=== PATIENT | male | born 1980 | race Caucasian/White ===

== ENCOUNTER 2021-06-02 16:53 | Outpatient (REF) | payer MEDICAID, SELFPAY ==
--- NOTE | ~2021-06-02 | XR_ITS ---
EXAMINATION: XR CHEST CLINICAL INFORMATION: Cough COMPARISON: Previous chest x-ray January 2020 TECHNIQUE: 2 views of the chest were obtained. FINDINGS: No significant abnormality is noted involving the heart, lungs, mediastinum, bony thorax or soft tissues. XR/XR chest 2V IMPRESSION: Unremarkable examination.
== END 2021-06-02 16:54 | disposition home or self-care (01) ==
LOC: HO.XRAY 16:53
PROVIDERS: PCP Internal Medicine; Visit Provider Internal Medicine
DX: R05.9 Cough, unspecified (principal)
CPT/HCPCS: 71046

== ENCOUNTER 2021-08-30 13:12 | Emergency (ER) | payer MEDICAID, SELFPAY ==
--- NOTE | 2021-08-30 | ECG_ITS ---
Test Reason : chest pain Blood Pressure : / mmHG Vent. Rate : 064 BPM Atrial Rate : 064 BPM P-R Int : 170 ms QRS Dur : 092 ms QT Int : 380 ms P-R-T Axes : 051 019 010 degrees QTc Int : 392 ms Normal sinus rhythm with sinus arrhythmia Normal ECG When compared with ECG of 30-AUG-2021 13:45, No significant change was found Referred By: Generic ED Physician Electronically Signed By:Santhosh Moreno
--- NOTE | 2021-08-30 | ECG_ITS ---
Test Reason : chest pain Blood Pressure : / mmHG Vent. Rate : 069 BPM Atrial Rate : 069 BPM P-R Int : 164 ms QRS Dur : 090 ms QT Int : 378 ms P-R-T Axes : 037 016 005 degrees QTc Int : 405 ms Normal sinus rhythm Normal ECG When compared with ECG of 08-FEB-2020 14:20, No significant change was found Referred By: Generic ED Physician Electronically Signed By:Santhosh Moreno
--- NOTE | ~2021-08-30 | CT_ITS ---
EXAMINATION: CT SOFT TISSUE NECK WITH CONTRAST CLINICAL INFORMATION: Tonsillar swelling. Rule out abscess. SOB. COMPARISON: None TECHNIQUE: Following the intravenous administration of 60 mL of Omnipaque 350 intravenous contrast, helical imaging was performed in the axial plane with generation of coronal and sagittal reformatted images. This CT examination was performed using dose optimization techniques as appropriate, variously including the following: *Automated exposure control *Adjustment of mA and/or kV according to patient size (this includes techniques or standardized protocols for targeted exams where dose is matched to indication/reason for exam; i.e. extremities or head) *Use of iterative reconstruction technique DLP: 562 mGy-cm FINDINGS: No cervical adenopathy is identified. The parotid glands are homogeneous in attenuation. The submandibular glands are normal. No contour abnormality or pathologic enhancement is seen within the oral cavity or pharyngeal mucosal space. The laryngeal structures are normal. The parapharyngeal fat is preserved. The carotid sheath vasculature opacify normally. No extra mucosal soft tissue mass or fluid collection is seen. No retropharyngeal fluid collection is seen. The thyroid gland is normal. The superior mediastinum is unremarkable. The lung apices are clear. The mastoid air cells and visualized portions of the paranasal sinuses are well-aerated. The temporomandibular joints are normal. No periapical disease is identified. Mild degenerative disc changes with ventral spondylosis C5-C6 disc level.. The imaged portions of the brain parenchyma are unremarkable. CT/CT soft tissue neck w con IMPRESSION: Unremarkable CT soft tissue neck examination.
--- NOTE | ~2021-08-30 | XR_ITS ---
EXAMINATION: XR CHEST CLINICAL INFORMATION: Chest pain COMPARISON: None TECHNIQUE: 2 views of the chest were obtained. FINDINGS: No significant abnormality is noted involving the heart, lungs, mediastinum, bony thorax or soft tissues. XR/XR chest 2V IMPRESSION: Unremarkable chest examination.
[2021-08-30 14:01] LABS: MANUAL DIFF FLAG NO
[2021-08-30 14:03] LABS: Basophils Absolute Auto 0.1 X10*3/uL (0.0-0.2); Eosinophils Absolute Auto 0.4 X10*3/uL (0.0-0.4); Eosinophils Percent Auto 3.9 % (0-4); Hematocrit 45.6 % (42.0-52.0); Hemoglobin 15.7 g/dl (14.0-18.0); Imm Gran Abs Auto 0.05 X10*3/uL (0.00-0.03); Imm Gran Pct Auto 0.5 % (0.0-0.4); Lymphocytes Absolute Auto 2.5 X10*3/uL (1.2-4.9); Mean Corpuscular HGB Conc 34.4 g/dl (31.0-36.0); Mean Corpuscular Hemoglobin 31.8 pg (27.0-33.0); Mean Corpuscular Volume 92.3 fL (80.0-98.0); Mean Platelet Volume 10.1 fL (9.4-12.4); Monocytes Absolute Auto 0.8 X10*3/uL (0.1-1.2); Monocytes Percent Auto 8.2 % (2-11); Neutrophils Absolute Auto 5.4 x10*3/uL (2.0-8.3); Neutrophils Percent Auto 59.4 % (45-73); Platelet Count 250 X10*3/uL (160-400); Red Blood Count 4.94 X10*6/uL (4.60-5.80); Red Cell Distribution Width 12.1 % (11.0-16.0); White Blood Count 9.1 X10*3/uL (4.8-10.8)
[2021-08-30 14:04] VITALS: BP 131/89; PULSE 69; RESP 16; TEMP 36.4; O2SAT 98; BMI 25.0
[2021-08-30 14:11] LABS: Strep A Nucleic Acid Negative (Negative)
[2021-08-30 14:25] LABS: Troponin-I High Sensitivity < 3.5 ng/L (<3.5-35.0)
[2021-08-30 14:33] LABS: Anion Gap 13 (12-20); Blood Urea Nitrogen 9 mg/dL (9-16); Calcium 9.4 mg/dL (8.4-10.2); Carbon Dioxide 24 mmol/L (22-29); Chloride 106 mmol/L (96-108); Creatinine Clr Calc Pharmacy 117.1; Estimated Glomerular Filt Rate > 60; Glucose Random 98 mg/dL (60-115); Potassium 4.2 mmol/L (3.3-5.1); Sodium 139 mmol/L (135-145)
--- NOTE | 2021-08-30 16:44 | ED.CHESTPAIN ---
HPI - Chest Pain General Chief Complaint: Chest Pain Stated Complaint: chest pains Time Seen by Provider: 08/30/21 14:02 Source: patient Mode of arrival: ambulatory Limitations: no limitations History of Present Illness HPI narrative: This is a 41-year-old male no known medical history presenting to the emergency department with multiple complaints. He tells me he has been having a ear pain, sore throat, difficulty breathing, chest pains x2 days. He tells me it got worse today. His chest pain is localized to the left side of his chest, he describes it as a squeezing sensation that is intermittent in nature, it does not radiate. He tells me it started when he woke up at 9:00 am, but it didnt wake him from his sleep. Chest pain is worse with lying down, better sitting forward. Shortness of breath is also present he tells me he feels like his throat is tight and closing, he has a history of recurrent tonsillitis since he was a child. He reports that because of this he is having trouble breathing. He does mention that he thinks his chest pain is associated to the sensation of shortness of breath, he does get nervous. He had a hard time sleeping last night due to these symptoms. He has no known food allergies however he is allergic to penicillin. He has not taken penicillin. He denies recent URI. He denies fevers, chills, nausea, vomiting, abdominal pain, palpitations, headache, dizziness, vision changes, weakness. No personal or family history of cardiac disease. MD complaint: chest pain Onset (ago): hour(s) (8) Timing of current episode: episodic Prior episodes: No Onset: during rest Pain location: left chest Pain radiation: none Severity: severe Quality: tightness (/squeezing) Relieving factors: leaning forward and other Exacerbating factors: supine Associated symptoms: nausea Treatment prior to arrival: none Related Data Previous Rx's Medication Instructions Recorded azithromycin 500 mg tablet 500 mg PO DAILY 5 Days #5 tab 08/30/21 prednisone 20 mg tablet 40 mg PO DAILY 5 Days #10 tab 08/30/21 Allergies Allergy/AdvReac Type Severity Reaction Status Date / Time penicillin V Allergy Unknown Verified 10/17/16 00:00 Penicillins [PENICILLINS] Allergy Unknown RASH Unverified 03/17/20 14:49 Review of Systems Review of Systems: Constitutional : No Weight loss, No Fever, No Chills, No Fatigue, No Malaise ENT/Mouth : No sore throat, No Rhinorrhea Eyes: No Eye Pain, No Swelling, No Redness Cardiovascular : + Chest Pain, No SOB, No Dyspnea on Exertion, No Orthopnea, No Edema, No Palpitations Respiratory : No Cough, No Sputum, No Wheezing Gastrointestinal : No Nausea, No Vomiting, No Diarrhea, No Constipation, No abdominal Pain, No Hematochezia, No Melena Genitourinary : No Dysuria, No Urinary Frequency, No Hematuria, Musculoskeletal : No joint pain, No Myalgias, No Joint Swelling Skin : No Skin Lesions, No rash Neuro : No Weakness, No Numbness, No Dizziness, No Headache Psych : No Anxiety/Panic, No Depression All other systems reviewed and are negative Yes all other systems are reviewed and are negative [facility] Past Medical History Attestation statement: The following information was validated with the patient. Source: old records reviewed and nursing notes reviewed Medical History No known health problems Social History Social History Advance Directives: No Advance Directives Information Provided: No Physical Exam Vital Signs: Vital Signs: Last Vital Signs Temp 97.8 F 08/30/21 16:49 Pulse 70 08/30/21 19:09 Resp 12 08/30/21 19:09 BP 116/86 08/30/21 19:09 Pulse Ox 99 08/30/21 19:09 BMI result Body Mass Index 25.0 VSS Appearance: Alert.? Oriented X3.? No acute distress.? Head: Normocephalic, atraumatic, no step-offs or deformities Eyes: Pupils equal, round and reactive to light.? ENT: + bilateral tonsils erythematous and edematous. No exudates.+ pain with manipulation of external left ear. No lymphadenopathy. Normal TM b/l. Neck: Normal inspection.? Neck supple.? CVS: Normal heart rate and rhythm.? Pulses normal.? Respiratory: No respiratory distress.? Breath sounds normal.? Abdomen: Soft and nontender.? Skin: Skin warm and dry.? Normal skin color.? Normal skin turgor.? Extremities: No lower extremity edema.? No calf ttp, negative bro. . 5/5 strength to bilateral upper and lower extremities Back: No midline tenderness, no C-spine tenderness, full range of motion, no CVA tenderness bilaterally Neuro: Oriented X 3.? No motor deficit.? No sensory deficit. CN 2-12 intact Course Reevaluation(s) Reevaluation #1: CBC within normal limits chemistries no acute electrolyte abnormalities. CRP negative. Troponin negative x2 BNP negative. Unlikely ACS, CHF. CT of soft tissues neck unremarkable. pericarditis. Patient is likely experiencing noncardiac related chest pain. Likely tonsillitis. He notes improvement after Benadryl, and prednisone. Advised him to follow-up with his PCP. Return with new or worsening symptoms. Will also advised to follow-up with ENT. Comfortable with discharge home Time: 19:28 MDM - Chest Pain MDM Narrative Medical decision making narrative: 1446 41 yo m no pmhx presents w/sensation that his throat is closing, sore throat, shortness of breath and chest pain since 09:00. Physical examination benign. Regular rate and rhythm, lungs clear. Abdomen soft nontender nondistended. Posterior pharynx with slight erythema/edema of tonsils no exudates. No lymphadenopathy. Bilateral tympanic membranes pearly white, clear to landmarks, no effusions. Pain to palpation of L external ear. Neuro intact. History and physical examination not consistent with epiglottitis. Will rule out peritonsillar abscess. Based off patient's symptoms, history and physical unlikely that this is ACS. Unlikely that this is a blood clot. On my differential is pericarditis. I do not suspect that this is an anaphylactic reaction. History and physical examination not consistent with pulmonary embolism, saturating well on room air, not tachycardic or tachypneic. Negative Bro bilaterally. Plan is labs, imaging, ESR, CRP, strep, COVID. I will give him Benadryl and prednisone. Medical Records Data Attestation: I reviewed the patient's medical records. Lab Data Attestation: I reviewed the patient's lab results. Result diagrams: 08/30/21 13:56 08/30/21 13:56 Labs: Lab Results 08/30/21 08/30/21 08/30/21 Range/Units 13:56 13:56 13:56 WBC 9.1 (4.8-10.8) X10*3/uL RBC 4.94 (4.60-5.80) X10*6/uL Hgb 15.7 (14.0-18.0) g/dl Hct 45.6 (42.0-52.0) % MCV 92.3 (80.0-98.0) fL MCH 31.8 (27.0-33.0) pg MCHC 34.4 (31.0-36.0) g/dl RDW 12.1 (11.0-16.0) % Plt Count 250 (160-400) X10*3/uL MPV 10.1 (9.4-12.4) fL Immature Gran % (Auto) 0.5 H (0.0-0.4) % Neut % (Auto) 59.4 (45-73) % Lymph % (Auto) 27.0 (20-40) % [place] % (Auto) 8.2 (2-11) % Eos % (Auto) 3.9 (0-4) % Baso % (Auto) 1.0 (0-2) % Lymph # (Auto) 2.5 (1.2-4.9) X10*3/uL [place] # (Auto) 0.8 (0.1-1.2) X10*3/uL Eos # (Auto) 0.4 (0.0-0.4) X10*3/uL Baso # (Auto) 0.1 (0.0-0.2) X10*3/uL Abs Immat Gran (auto) 0.05 H (0.00-0.03) X10*3/uL Absolute Neuts (auto) 5.4 (2.0-8.3) x10*3/uL Absolute Nucleated RBC 0.000 (0.0-0.012) X10*3/uL Nucleated RBC % (auto) 0.0 (0.0-0.2) /100WBC ESR (0-15) MM/HR Sodium 139 (135-145) mmol/L Potassium 4.2 (3.3-5.1) mmol/L Chloride 106 (96-108) mmol/L Carbon Dioxide 24 (22-29) mmol/L Anion Gap 13 (12-20) BUN 9 (9-16) mg/dL Creatinine 0.92 (0.5-1.4) mg/dL Estim Creat Clear Calc 117.1 Estimated GFR > 60 Random Glucose 98 (60-115) mg/dL Calcium 9.4 (8.4-10.2) mg/dL Troponin I High Sens < 3.5 (<3.5-35.0) ng/L C-Reactive Protein (< or = 0.50) mg/dL B-Natriuretic Peptide (<100) pg/mL COVID-19 ([facility]) (Negative) COVID-19 Clin Com S. pyogenes GrpA MARIBEL (Negative) 08/30/21 08/30/21 08/30/21 Range/Units 13:56 17:17 17:17 WBC (4.8-10.8) X10*3/uL RBC (4.60-5.80) X10*6/uL Hgb (14.0-18.0) g/dl Hct (42.0-52.0) % MCV (80.0-98.0) fL MCH (27.0-33.0) pg MCHC (31.0-36.0) g/dl RDW (11.0-16.0) % Plt Count (160-400) X10*3/uL MPV (9.4-12.4) fL Immature Gran % (Auto) (0.0-0.4) % Neut % (Auto) (45-73) % Lymph % (Auto) (20-40) % [place] % (Auto) (2-11) % Eos % (Auto) (0-4) % Baso % (Auto) (0-2) % Lymph # (Auto) (1.2-4.9) X10*3/uL [place] # (Auto) (0.1-1.2) X10*3/uL Eos # (Auto) (0.0-0.4) X10*3/uL Baso # (Auto) (0.0-0.2) X10*3/uL Abs Immat Gran (auto) (0.00-0.03) X10*3/uL Absolute Neuts (auto) (2.0-8.3) x10*3/uL Absolute Nucleated RBC (0.0-0.012) X10*3/uL Nucleated RBC % (auto) (0.0-0.2) /100WBC ESR (0-15) MM/HR Sodium (135-145) mmol/L Potassium (3.3-5.1) mmol/L Chloride (96-108) mmol/L Carbon Dioxide (22-29) mmol/L Anion Gap (12-20) BUN (9-16) mg/dL Creatinine (0.5-1.4) mg/dL Estim Creat Clear Calc Estimated GFR Random Glucose (60-115) mg/dL Calcium (8.4-10.2) mg/dL Troponin I High Sens (<3.5-35.0) ng/L C-Reactive Protein 0.15 (< or = 0.50) mg/dL B-Natriuretic Peptide (<100) pg/mL COVID-19 ([facility]) Negative (Negative) COVID-19 Clin Com See Note S. pyogenes GrpA MARIBEL Negative (Negative) 08/30/21 08/30/21 Range/Units 17:17 17:40 WBC (4.8-10.8) X10*3/uL RBC (4.60-5.80) X10*6/uL Hgb (14.0-18.0) g/dl Hct (42.0-52.0) % MCV (80.0-98.0) fL MCH (27.0-33.0) pg MCHC (31.0-36.0) g/dl RDW (11.0-16.0) % Plt Count (160-400) X10*3/uL MPV (9.4-12.4) fL Immature Gran % (Auto) (0.0-0.4) % Neut % (Auto) (45-73) % Lymph % (Auto) (20-40) % [place] % (Auto) (2-11) % Eos % (Auto) (0-4) % Baso % (Auto) (0-2) % Lymph # (Auto) (1.2-4.9) X10*3/uL [place] # (Auto) (0.1-1.2) X10*3/uL Eos # (Auto) (0.0-0.4) X10*3/uL Baso # (Auto) (0.0-0.2) X10*3/uL Abs Immat Gran (auto) (0.00-0.03) X10*3/uL Absolute Neuts (auto) (2.0-8.3) x10*3/uL Absolute Nucleated RBC (0.0-0.012) X10*3/uL Nucleated RBC % (auto) (0.0-0.2) /100WBC ESR 2 (0-15) MM/HR Sodium (135-145) mmol/L Potassium (3.3-5.1) mmol/L Chloride (96-108) mmol/L Carbon Dioxide (22-29) mmol/L Anion Gap (12-20) BUN (9-16) mg/dL Creatinine (0.5-1.4) mg/dL Estim Creat Clear Calc Estimated GFR Random Glucose (60-115) mg/dL Calcium (8.4-10.2) mg/dL Troponin I High Sens < 3.5 (<3.5-35.0) ng/L C-Reactive Protein (< or = 0.50) mg/dL B-Natriuretic Peptide 19 (<100) pg/mL COVID-19 ([facility]) (Negative) COVID-19 Clin Com S. pyogenes GrpA MARIBEL (Negative) ECG Data ECG #1: Attestation: I personally reviewed and interpreted this ECG as follows: ECG interpretation date: 08/30/21 ECG interpretation time: 16:47 Prior ECG tracings: available for review Interpretation: Ventricular rate of 64, HI normal, QRS normal, QT/QTC normal. EKG shows normal sinus rhythm with sinus arrhythmia no ST elevations or inversions concerning for ischemia. No significant changes when compared to EKG from January 2020 Critical Care Time Critical Care Time Critical Care Time: No Discharge Plan Discharge Clinical Impression: Chest pain not due to acute coronary syndrome, Acute recurrent tonsillitis, Acute sore throat, Otitis externa Patient Disposition: Home, Self-Care Instructions: Chest Wall Pain (ED) Additional Instructions: Take your medications as prescribed. If you were prescribed antibiotics today, it is important that you take your medication to their entirety, do not skip any doses, do not finish them early. Follow-up with your primary care provider this week. Follow-up with Cardiology if symptoms do not improve within a week. Follow-up with ENT as you have been getting recurrent tonsillitis for a while. Return to the emergency department with new or worsening symptoms. Such as chest pain, shortness of breath, nausea, vomiting, fevers, chills, difficulties controlling secretions, difficulty speaking, lethargy, abdominal pain. You can do saltwater gargles. In case of emergency call 911 Prescriptions: New azithromycin 500 mg tablet 500 mg PO DAILY 5 Days Qty: 5 0RF prednisone 20 mg tablet 40 mg PO DAILY 5 Days Qty: 10 0RF Referrals: [facility] [Primary Care Provider] - 2 days Satnhosh Moreno MD [Physician] - 1 week PhysicianKen [Physician] - 2 days Sam Nunez [Physician] - 2 days Stand Alone Forms: Work/School Release
[2021-08-30 16:49] VITALS: BP 122/80; PULSE 64; RESP 14; TEMP 36.6; O2SAT 98
--- NOTE | 2021-08-30 17:00 | PC.NURSE ---
Pt received: Pt AOX4 and offers complaints of CP for the several hours, which awoke him from sleep. NSR noted and lungs clear. Pt abd soft and non-tender.
[2021-08-30] MEDS: diphenhydrAMINE HCL 25 MG TABLET 50 MG PO (17:19)
[2021-08-30] MEDS: predniSONE 20 MG TABLET PO (17:19)
[2021-08-30 17:44] LABS: C Reactive Protein 0.15 mg/dL (< or = 0.50)
[2021-08-30 17:50] LABS: B Type Natriuretic Peptide 19 pg/mL (<100); Troponin-I High Sensitivity < 3.5 ng/L (<3.5-35.0)
[2021-08-30 18:01] LABS: COVID-19 Test Negative (Negative); IDNOW Serial# 16C4AD1C
[2021-08-30] MEDS: iohexoL 350 MG/ML 100 ML INFUS..BTL IV (18:09)
[2021-08-30 18:21] LABS: Erythrocyte Sedimentation Rate 2 MM/HR (0-15)
[2021-08-30 19:09] VITALS: BP 116/86; PULSE 70; RESP 12; O2SAT 99
== END 2021-08-30 19:43 | disposition home or self-care (01) ==
PROVIDERS: Physician Assistant; Emergency Provider Emergency Medicine
DX: R07.89 Other chest pain (principal); H60.92 Unspecified otitis externa, left ear; J03.91 Acute recurrent tonsillitis, unspecified; J02.9 Acute pharyngitis, unspecified; R06.02 Shortness of breath; Z20.822 Contact with and (suspected) exposure to COVID-19
CPT/HCPCS: 36415; 70491; 71046; 80048; 83880; 84484; 85025; 85652; 86140; 87635; 87651; 93005; 99284; Q0163; Q9967

== ENCOUNTER 2023-05-15 13:06 | Emergency (ER) | payer SELFPAY ==
--- NOTE | ~2023-05-15 | XR_ITS ---
EXAMINATION: XR CHEST CLINICAL INFORMATION: Chest pain left anterior COMPARISON: 08/30/2021 TECHNIQUE: Frontal view of the chest was obtained. FINDINGS: Lungs clear. Heart and pulmonary vessels normal. No consolidation. No pneumothorax. Bony structures intact. XR/XR chest 1V IMPRESSION: No active disease.
--- NOTE | 2023-05-15 13:07 | ECG_ITS ---
Test Reason : cp Blood Pressure : / mmHG Vent. Rate : 064 BPM Atrial Rate : 064 BPM P-R Int : 142 ms QRS Dur : 090 ms QT Int : 378 ms P-R-T Axes : 057 018 017 degrees QTc Int : 389 ms Normal sinus rhythm Normal ECG When compared with ECG of 30-AUG-2021 13:55, No significant change was found Referred By: Generic ED Physician Electronically Signed By:QUYNH GUEVARA MD
[2023-05-15 13:28] VITALS: BP 128/89; PULSE 67; RESP 16; TEMP 37.1; O2SAT 97; BMI 25.7
--- NOTE | 2023-05-15 13:28 | ED.CHESTPAIN ---
HPI - Chest Pain General Chief Complaint: Chest Pain Stated Complaint: Chest pain Time Seen by Provider: 05/15/23 14:11 Source: patient Mode of arrival: ambulatory Limitations: no limitations History of Present Illness HPI narrative: A 43-year-old male otherwise healthy presented for evaluation of left-sided chest pain thigh for 1 week pain has been constant, pain is associated with left upper extremities numbness, no recent trauma to the chest, has been coughing occasionally with no phlegm, patient quit smoking 2 months ago. No known cardiac history or risk factors. Patient drove to [place] last month declined any lower extremity swelling or tenderness no history of PE or DVT. Related Data Previous Rx's Medication Instructions Recorded azithromycin 500 mg tablet 500 mg PO DAILY 5 days #5 tabs 08/30/21 prednisone 20 mg tablet 40 mg (2 x 20 mg) PO DAILY 5 days 08/30/21 #10 tabs Allergies Allergy/AdvReac Type Severity Reaction Status Date / Time penicillin V Allergy Unknown Unknown Verified 05/15/23 13:30 Penicillins [PENICILLINS] Allergy Unknown RASH Verified 05/15/23 13:30 Review of Systems Review of Systems: All other systems are reviewed and are negative Constitutional: Reports as per HPI and Reports no additional constitutional complaints Eyes: Reports as per HPI and Reports no additional eye complaints Reports system reviewed and no additional complaints, except as documented Cardiovascular: Reports as per HPI and Reports no additional cardiovascular complaints Respiratory: Reports as per HPI and Reports no additional respiratory complaints Gastrointestinal: Reports as per HPI and Reports no additional gastrointestinal complaints Genitourinary: Reports no additional female genitourinary complaints Musculoskeletal: Reports no additional musculoskeletal complaints Skin/Breast: Reports system reviewed and no additional complaints, except as docu Psychiatric: Reports no additional psychiatric complaints Endocrine: Reports no additional endocrine complaints Hematologic/Lymphatic: Reports no additional hematologic/lymphatic complaints Allergic/Immunologic: Reports no additional allergic/immunologic complaints Reports system reviewed and no additional complaints, except as documented and Reports Abnormal speech present [facility] Past Medical History Medical History No known health problems Physical Exam Vital Signs: Vital Signs: Last Vital Signs Temp 98.8 F 05/15/23 13:28 Pulse 67 05/15/23 13:28 Resp 16 05/15/23 13:28 BP 128/89 05/15/23 13:28 Pulse Ox 97 05/15/23 13:28 O2 Del Method Room Air 05/15/23 13:28 BMI result Body Mass Index 25.7 Vital signs have been reviewed and appear to be correct. Blood pressure elevated. Heart rate normal. Respiratory rate normal. Temperature normal. Oxygen saturation normal. Appearance: Alert. Oriented X3. No acute distress. Head: Normal external exam. Normocephalic. Atraumatic. No Beltran signs noted. No raccoon eyes noted Eyes: PERRLA. EOMI. Conjunctiva and sclera normal. Eyelids normal. ENT: TM's Normal. Pharynx normal. Uvula midline. Moist mucous membranes. No trismus noted. No drooling noted. No muffled voice noted. Neck: Normal inspection. Neck supple. FROM. No adenopathy. Thyroid Normal. No meningeal signs. No neck mass noted. CVS: Normal heart rate and rhythm. Heart sound normal. No murmurs noted. Pulses normal throughout. Respiratory: No respiratory distress. Painless inspiration. Breath sounds normal. No wheezes/rales/rhonchi noted. Chest nontender. No accessory muscle usage noted or decreased air movement noted. Abdomen: Soft and nontender. Bowel sounds normal in all 4 quadrants. No distention noted. No organomegaly noted. No visible injury noted. Back: No CVA tenderness. Full range of motion noted. Skin: Skin warm and dry. Normal skin color. Normal skin turgor. No rashes/lesions/lacerations noted. Extremities: No lower extremity edema. Extremities exhibit normal range of motion. Extremities nontender. Neuro: Oriented X 3. Cranial nerve exam: II-XII are grossly intact No motor deficit. No sensory deficit. Reflexes normal. Course Course Course Narrative: RME: 43yo M w/no sig PMHx c/o worsening left sided chest pain x1 week, w/radiation down LUE. Also reports SOB worse w/ambulation. +travel to [place] 1mos ago. Denies cough, fever. prior cigarette smoker, quit 2mos ago EKG, Labs, CXR, COVID testing ordered Full HPI, ROS and PE to be performed by primary ED provider. Medical Decision Making Differential Diagnosis Differential Diagnoses: The differential diagnosis associated with the presentation includes ACS, pulmonary embolism, pneumonia, pleural effusion, rib fracture, electrolyte abnormality, severe anemia. Admission/Observation Consideration of admission/observation: Escalation of care including admission/observation considered Lab Data MDM Lab Attestation statement: I reviewed the patient's lab results. 05/15/23 13:44 05/15/23 13:44 Labs: Lab Results 05/15/23 Range/Units 13:44 WBC 8.9 (4.8-10.8) X10*3/uL RBC 4.82 (4.60-5.80) X10*6/uL Hgb 15.1 (14.0-18.0) g/dl Hct 44.1 (42.0-52.0) % MCV 91.5 (80.0-98.0) fL MCH 31.3 (27.0-33.0) pg MCHC 34.2 (31.0-36.0) g/dl RDW 11.3 (11.0-16.0) % Plt Count 240 (160-400) X10*3/uL MPV 10.3 (9.4-12.4) fL Immature Gran % (Auto) 0.6 H (0.0-0.4) % Neut % (Auto) 47.9 (45-73) % Lymph % (Auto) 33.8 (20-40) % Tucker % (Auto) 9.4 (2-11) % Eos % (Auto) 7.0 H (0-4) % Baso % (Auto) 1.3 (0-2) % Lymph # (Auto) 3.0 (1.2-4.9) X10*3/uL Tucker # (Auto) 0.8 (0.1-1.2) X10*3/uL Eos # (Auto) 0.6 H (0.0-0.4) X10*3/uL Baso # (Auto) 0.1 (0.0-0.2) X10*3/uL Abs Immat Gran (auto) 0.05 H (0.00-0.03) X10*3/uL Absolute Neuts (auto) 4.3 (2.0-8.3) x10*3/uL Absolute Nucleated RBC 0.000 (0.0-0.012) X10*3/uL Nucleated RBC % (auto) 0.0 (0.0-0.2) /100WBC Sodium 141 (135-145) mmol/L Potassium 3.8 (3.3-5.1) mmol/L Chloride 108 (96-108) mmol/L Carbon Dioxide 26 (22-29) mmol/L Anion Gap 11 L (12-20) BUN 10 (9-16) mg/dL Creatinine 0.96 (0.5-1.4) mg/dL Estim Creat Clear Calc 110.0 Estimated GFR > 60 Random Glucose 102 (60-115) mg/dL Calcium 9.0 (8.4-10.2) mg/dL Total Bilirubin 0.7 (0.0-1.0) mg/dL Direct Bilirubin 0.2 (0.0-0.5) mg/dL AST 23 (5-37) U/L ALT 28 (0-40) U/L Alkaline Phosphatase 64 (39-117) U/L B-Natriuretic Peptide < 10 (<100) pg/mL Total Protein 6.8 (6.5-8.0) g/dL Albumin 4.0 (3.5-5.0) g/dL COVID-19 ([facility]) Negative (Negative) COVID-19 Clin Com See Note Independent Interpretation I performed an independent interpretation of an: EKG ( Normal sinus rhythm at 64 beats per minutes, normal intervals, no ST-T changes, no significant change from old EKG.) and Plain X-Ray (chest: No acute intrathoracic pathology.) Radiology Impression Discussion of test interpretation with radiology: I have reviewed the radiologist's reading. Discharge Plan Discharge Clinical Impression: Chest pain Patient Disposition: Home, Self-Care Instructions: Chest Pain (ED) Prescriptions: No Action azithromycin 500 mg tablet 500 mg PO DAILY 5 Days Qty: 5 0RF prednisone 20 mg tablet 40 mg PO DAILY 5 Days Qty: 10 0RF Stand Alone Forms: Work/School Release
[2023-05-15 13:48] LABS: MANUAL DIFF FLAG NO
[2023-05-15 13:51] LABS: Basophils Absolute Auto 0.1 X10*3/uL (0.0-0.2); Basophils Percent Auto 1.3 % (0-2); Eosinophils Absolute Auto 0.6 X10*3/uL (0.0-0.4); Hematocrit 44.1 % (42.0-52.0); Hemoglobin 15.1 g/dl (14.0-18.0); Imm Gran Abs Auto 0.05 X10*3/uL (0.00-0.03); Imm Gran Pct Auto 0.6 % (0.0-0.4); Lymphocytes Percent Auto 33.8 % (20-40); Mean Corpuscular HGB Conc 34.2 g/dl (31.0-36.0); Mean Corpuscular Hemoglobin 31.3 pg (27.0-33.0); Mean Corpuscular Volume 91.5 fL (80.0-98.0); Mean Platelet Volume 10.3 fL (9.4-12.4); Monocytes Absolute Auto 0.8 X10*3/uL (0.1-1.2); Monocytes Percent Auto 9.4 % (2-11); Neutrophils Absolute Auto 4.3 x10*3/uL (2.0-8.3); Neutrophils Percent Auto 47.9 % (45-73); Platelet Count 240 X10*3/uL (160-400); Red Blood Count 4.82 X10*6/uL (4.60-5.80); Red Cell Distribution Width 11.3 % (11.0-16.0); White Blood Count 8.9 X10*3/uL (4.8-10.8)
[2023-05-15 14:05] LABS: Alanine Aminotransferase 28 U/L (0-40); Alkaline Phosphatase 64 U/L (39-117); Anion Gap 11 (12-20); Aspartate Amino Transferase 23 U/L (5-37); Bilirubin Direct 0.2 mg/dL (0.0-0.5); Bilirubin Total 0.7 mg/dL (0.0-1.0); Blood Urea Nitrogen 10 mg/dL (9-16); Carbon Dioxide 26 mmol/L (22-29); Chloride 108 mmol/L (96-108); Estimated Glomerular Filt Rate > 60; Glucose Random 102 mg/dL (60-115); Potassium 3.8 mmol/L (3.3-5.1); Sodium 141 mmol/L (135-145); Total Protein 6.8 g/dL (6.5-8.0)
[2023-05-15 14:08] LABS: COVID-19 Test Negative (Negative); IDNOW Serial# 08D9AD1C
[2023-05-15 14:10] LABS: B Type Natriuretic Peptide < 10 pg/mL (<100)
[2023-05-15 14:17] LABS: Troponin-I High Sensitivity < 2.7 ng/L (<3.5-35.0)
[2023-05-15 14:24] VITALS: BP 117/75; PULSE 56; RESP 16; O2SAT 97
[2023-05-15 14:47] LABS: D Dimer High Sensitivity < 150 NG/ML
[2023-05-15 15:07] LABS: Troponin-I High Sensitivity < 2.7 ng/L (<3.5-35.0)
[2023-05-15 16:00] VITALS: BP 117/75; PULSE 55; RESP 18; TEMP 36.8; O2SAT 97
== END 2023-05-15 16:36 | disposition home or self-care (01) ==
PROVIDERS: Physician Assistant; Emergency Provider Emergency Medicine
DX: R07.89 Other chest pain (principal); R20.0 Anesthesia of skin; R06.02 Shortness of breath; Z11.52 Encounter for screening for COVID-19; Z20.822 Contact with and (suspected) exposure to COVID-19; Z79.899 Other long term (current) drug therapy
CPT/HCPCS: 36415; 71045; 80048; 80076; 83880; 84484; 85025; 85379; 87635; 93005; 99283; 99285